=== PATIENT | female | born 1990 | race Asian ===

== ENCOUNTER 2020-11-12 05:03 | Emergency (ER) | payer MEDICAID ==
[2020-11-12] MEDS ORDERED: HYDROmorphone 0.5 MG/0.5 ML Syringe IVPUSH ONE (05:26)
[2020-11-12] MEDS ORDERED: Ondansetron 4 MG/2 ML SDV IVPUSH ONE (05:26)
[2020-11-12] MEDS ORDERED: Sodium Chloride 0.9% 1,000 ML IV SCH (05:30)
--- NOTE | 2020-11-12 05:33 | EDM.PDOC ---
<Cristopher Sánchez - Last Filed: 11/12/20 06:54> ED HPI GENERAL MEDICAL PROBLEM - General Chief Complaint: Abdominal Pain Stated Complaint: abdominal pain Time Seen by Provider: 11/12/20 05:13 Source of Information: Reports: Patient History Limitations: Reports: Other (The patient appears to be in pain and is intolerant of my evaluation) - History of Present Illness INITIAL COMMENTS - FREE TEXT/NARRATIVE: Ms. Emilio Thornton is a 30-year-old woman who now presents to the ED by EMS after waking up around 03:30 this morning with sudden onset severe sharp/stabbing right pelvic pain. The pain has been waxing and waning, however, the patient has not identified any modifiers. No associated fever, chills, nausea, vomiting, constipation, diarrhea, dysuria, or gross hematuria. The patient did not take any [id number] or home remedies prior to calling the paramedics, however, EMS gave the patient 50 mcg of IV fentanyl en route to the ED. The patient states that she has had similar symptoms several times in the past, all due to ovarian cysts, although she states that she suffered an ovarian torsion at one point, as well. She states that she has undergone 3 ovarian cystectomies with 1 ovarian detorsion in the past. As far as she knows, she still has both ovaries. The patient's LMP was approximately in April 2020. She has an IUD. -0-1-1. Here in the ED, the patient is found to be hemodynamically stable, afebrile, saturating 100% on room air. Prior to early this morning, the patient denies having a recent fever, chills, sore throat, ear pain, nasal or sinus congestion, cough, dyspnea, chest pain, palpitations, nausea, vomiting, constipation, diarrhea, abdominal pain, urinary symptoms, recent weight gain or weight loss, recent bloody bowel movements or black bowel movements, recent joint aches, headaches, or rashes. The patient's PCP is Dr. Bryanna Mercedes, at [facility]. Her Fare Collector is Dr. Brissa Suh, at [facility]. She states that she has already received an influenza vaccine this season. Right Lower Abdominal Pain Score (Numeric/FACES): 2 - Related Data Allergies Allergy/AdvReac Type Severity Reaction Status Date / Time acetaminophen Allergy Rash Verified 11/12/20 05:05 [From Excedrin Tension Headache] caffeine Allergy Rash Verified 11/12/20 05:05 [From Excedrin Tension Headache] Home Meds: Home Meds Amitriptyline [Elavil] 25 mg PO BEDTIME 11/12/20 [History] Diclofenac Sodium [Voltaren] 75 mg PO BIDMEALS #10 tab.cr 11/12/20 [Rx] Levothyroxine [Synthroid] 100 mcg PO ACBREAKFAST 11/12/20 [History] oxyCODONE HCl/Acetaminophen [Percocet 5-325 mg Tablet] 1 - 2 each PO Q4H PRN #15 tablet 11/12/20 [Rx] 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 Ovarian torsion x 1.) Neurological History: Reports: Migraines Endocrine/Metabolic History: Reports: Hypothyroidism - Past Surgical History HEENT Surgical History: Reports: Oral Surgery (dental extractions) GI Surgical History: Reports: Appendectomy Female Surgical History: Reports: Other (See Below) (Laparoscopic ovarian cystectomy x 3, including ovarian detorsion x 1) Endocrine Surgical History: Reports: Thyroidectomy Social & Family History - Tobacco Use Tobacco Use Status *Q: Never Tobacco User - Alcohol Use Alcohol Use History: Yes Alcohol Use Frequency: Socially - Recreational Drug Use Recreational Drug Use: No - Living Situation & Occupation Living situation: Reports: Single, with Significant Other (Fianc + his grandfather), with Family (Daughter) 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 ED EXAM, RENAL/ - Physical Exam Exam: See Below Exam Limited By: No Limitations General Appearance: Alert, WD/WN, Mild Distress (appears uncomfortable) Eye Exam: Bilateral Eye: EOMI, Normal Inspection Ears: Normal External Exam, Hearing Grossly Normal Nose: Normal Inspection Throat/Mouth: Normal Inspection, Normal Lips, Normal Voice, No Airway Compromise Head: Atraumatic, Normocephalic Neck: Normal Inspection, Full Range of Motion Respiratory/Chest: No Respiratory Distress, Lungs Clear, Normal Breath Sounds, No Accessory Muscle Use Cardiovascular: Normal Peripheral Pulses, Regular Rate, Rhythm, No Edema, No Gallop, No JVD, No Murmur, No Rub GI/Abdominal: Normal Bowel Sounds, Soft, No Organomegaly, No Distention, No Abnormal Bruit, No Mass, Tender (Across the entire abdomen, with the greatest tenderness in the right lower quadrant/pelvis) Back Exam: Normal Inspection, Full Range of Motion. No: CVA Tenderness (L), CVA Tenderness (R) Extremities: Normal Inspection, Normal Range of Motion, No Pedal Edema, Normal Capillary Refill Neurological: Alert, Oriented, Normal Cognition, No Motor/Sensory Deficits Psychiatric: Normal Affect Skin Exam: Warm, Dry, Intact, Normal Color, No Rash Course - Re-Assessments/Exams Free Text/Narrative Re-Assessment/Exam: 11/12/20 05:26 As above, the patient who has a history of at least 3 ovarian cysts and one ovarian torsion, status post 3 ovarian cystectomies with 1 ovarian detorsion, now presents with sudden-onset right pelvic pain similar to prior ovarian cysts. She has normal bowel sounds, but complains of tenderness to her entire abdomen when palpated, particularly the right lower quadrant. Since she underwent an incidental appendectomy, appendicitis is obviously quite unlikely. I have ordered several blood tests, a urinalysis, and a pelvic ultrasound to evaluate. In the meantime, the patient will be given some IV Dilaudid, IV Zofran, and IV fluid. 11/12/20 07:00 The patient's CBC is unremarkable. Her CMP is remarkable for an anion gap slightly elevated at 15.7, but with a bicarbonate normal at 25, and mild hyperglycemia of 111, with the remainder of her CMP being unremarkable. Her urinalysis is unremarkable. Her quantitative hCG, and the results of her transvaginal ultrasound are still pending. Notified that the patient is requesting additional antinausea medicine, and something to eat or drink. I have ordered 10 mg of IV Reglan, however, I would like to keep her npo until the cause of her presenting symptoms has been determined. Case discussed with Dr. Shay, and care of the patient turned over to him at this time, for change of shift. Departure - Departure Disposition: Home, Self-Care 01 Clinical Impression: Ruptured cyst of left ovary - Discharge Information *PRESCRIPTION DRUG MONITORING PROGRAM REVIEWED*: Not Applicable *COPY OF PRESCRIPTION DRUG MONITORING REPORT IN PATIENT TIERA: Not Applicable Prescriptions: oxyCODONE HCl/Acetaminophen [Percocet 5-325 mg Tablet] 1 - 2 each PO Q4H PRN #15 tablet PRN Reason: pain relief. Diclofenac Sodium [Voltaren] 75 mg PO BIDMEALS #10 tab.cr Instructions: Ovarian Cyst, [id number] Referrals: Bryanna Mercedes MD [Ordering Only Provider] - Brissa Suh MD [Ordering Only Provider] - Forms: ED Department Discharge, ED Return to Work/School Form Additional Instructions: Evaluation in the emergency room this morning in regards to acute onset of left lower quadrant abdominal pain/pelvic pain that awoke him from sleep around 0330 hrs. this morning. Transvaginal ultrasound confirms a ruptured left ovarian cyst with slightly increased fluid within the pelvis due to drainage from the cyst. No active hemorrhage or bleeding from the cyst identified. Treatment is time to heal. Your body will clean up the mess or to speak over the next 4 to 5 days. Activity as tolerated. May use Voltaren 75 mg twice daily 1 in the morning and then 1 after supper for the next 5 days to reduce pain and inflammation. Percocet tabs 5 325 mg strength 1 or 2 every 4-6 hours as needed for pain relief. Sepsis Event Note (ED) - Evaluation Sepsis Screening Result: No Definite Risk <Regis Shay - Last Filed: 11/12/20 07:45> Course - Vital Signs Last Recorded V/S: Last Vital Signs Temp 36.4 C 11/12/20 05:06 Pulse 95 11/12/20 05:06 Resp 16 11/12/20 05:06 BP 110/73 11/12/20 05:06 Pulse Ox 100 11/12/20 05:06 - Orders/Labs/Meds Orders: Active Orders 24 hr Category Date Time Status Sodium Chloride 0.9% [Normal Saline] 1,000 ml Med 11/12/20 05:30 Active IV ASDIRECTED Medication Orders Sodium Chloride (Normal Saline) 1,000 mls @ 100 mls/hr IV ASDIRECTED KANDY Last Admin: 11/12/20 05:35 Dose: 100 mls/hr Documented by: ORACIO Labs: Laboratory Tests 11/12/20 11/12/20 11/12/20 Range/Units 05:37 05:37 05:37 WBC 6.85 (3.98-10.04) K/mm3 RBC 4.66 (3.98-5.22) M/mm3 Hgb 13.0 (11.2-15.7) gm/dl Hct 39.2 (34.1-44.9) % MCV 84.1 (79.4-94.8) fl MCH 27.9 (25.6-32.2) pg MCHC 33.2 (32.2-35.5) g/dl RDW Std Deviation 42.7 (36.4-46.3) fL Plt Count 278 (182-369) K/mm3 MPV 9.6 (9.4-12.3) fl Neutrophils % (Manual) 74 H (40-60) % Band Neutrophils % 0 (0-10) % Lymphocytes % (Manual) 25 (20-40) % Atypical Lymphs % 0 % Monocytes % (Manual) 1 L (2-10) % Eosinophils % (Manual) 0 L (0.7-5.8) % Basophils % (Manual) 0 L (0.1-1.2) Platelet Estimate Adequate RBC Morph Comment Normal Sodium 142 (136-145) mEq/L Potassium 3.7 (3.5-5.1) mEq/L Chloride 105 (98-107) mEq/L Carbon Dioxide 25 (21-32) mEq/L Anion Gap 15.7 H (5-15) BUN 8 (7-18) mg/dL Creatinine 0.9 (0.55-1.02) mg/dL Est Cr Clr Drug Dosing 84.79 mL/min Estimated GFR (MDRD) > 60 (>60) mL/min BUN/Creatinine Ratio 8.9 L (14-18) Glucose 111 H (74-106) mg/dL Calcium 8.2 L (8.5-10.1) mg/dL Total Bilirubin 0.4 (0.2-1.0) mg/dL AST 21 (15-37) U/L ALT 30 (14-59) U/L Alkaline Phosphatase 96 (46-116) U/L C-Reactive Protein (<1.0) mg/dL Total Protein 7.3 (6.4-8.2) g/dl Albumin 3.5 (3.4-5.0) g/dl Globulin 3.8 gm/dL Albumin/Globulin Ratio 0.9 L (1-2) HCG, Quant 2.0 mIU/mL Urine Color (Yellow) Urine Appearance (Clear) Urine pH (5.0-8.0) Ur Specific [place] (1.005-1.030) Urine Protein (Negative) Urine Glucose (UA) (Negative) Urine Ketones (Negative) Urine Occult Blood (Negative) Urine Nitrite (Negative) Urine Bilirubin (Negative) Urine Urobilinogen (0.2-1.0) Ur Leukocyte Esterase (Negative) Urine RBC (0-5) /hpf Urine WBC (0-5) /hpf Ur Squamous Epith Cells (0-5) /hpf Urine Bacteria (FEW) /hpf Urine Mucus (FEW) /hpf 11/12/20 11/12/20 Range/Units 05:37 05:47 WBC (3.98-10.04) K/mm3 RBC (3.98-5.22) M/mm3 Hgb (11.2-15.7) gm/dl Hct (34.1-44.9) % MCV (79.4-94.8) fl MCH (25.6-32.2) pg MCHC (32.2-35.5) g/dl RDW Std Deviation (36.4-46.3) fL Plt Count (182-369) K/mm3 MPV (9.4-12.3) fl Neutrophils % (Manual) (40-60) % Band Neutrophils % (0-10) % Lymphocytes % (Manual) (20-40) % Atypical Lymphs % % Monocytes % (Manual) (2-10) % Eosinophils % (Manual) (0.7-5.8) % Basophils % (Manual) (0.1-1.2) Platelet Estimate RBC Morph Comment Sodium (136-145) mEq/L Potassium (3.5-5.1) mEq/L Chloride (98-107) mEq/L Carbon Dioxide (21-32) mEq/L Anion Gap (5-15) BUN (7-18) mg/dL Creatinine (0.55-1.02) mg/dL Est Cr Clr Drug Dosing mL/min Estimated GFR (MDRD) (>60) mL/min BUN/Creatinine Ratio (14-18) Glucose (74-106) mg/dL Calcium (8.5-10.1) mg/dL Total Bilirubin (0.2-1.0) mg/dL AST (15-37) U/L ALT (14-59) U/L Alkaline Phosphatase (46-116) U/L C-Reactive Protein 0.3 (<1.0) mg/dL Total Protein (6.4-8.2) g/dl Albumin (3.4-5.0) g/dl Globulin gm/dL Albumin/Globulin Ratio (1-2) HCG, Quant mIU/mL Urine Color Yellow (Yellow) Urine Appearance Clear (Clear) Urine pH 6.5 (5.0-8.0) Ur Specific [place] 1.025 (1.005-1.030) Urine Protein Negative (Negative) Urine Glucose (UA) Negative (Negative) Urine Ketones Negative (Negative) Urine Occult Blood Negative (Negative) Urine Nitrite Negative (Negative) Urine Bilirubin Negative (Negative) Urine Urobilinogen 0.2 (0.2-1.0) Ur Leukocyte Esterase Negative (Negative) Urine RBC Not seen (0-5) /hpf Urine WBC 0-5 (0-5) /hpf Ur Squamous Epith Cells 5-10 H (0-5) /hpf Urine Bacteria Rare (FEW) /hpf Urine Mucus Few (FEW) /hpf Meds: Medications Generic Name Dose Route Start Last Admin Trade Name Freq PRN Reason Stop Dose Admin Sodium Chloride 1,000 mls @ 100 mls/hr 11/12/20 05:30 11/12/20 05:35 Normal Saline IV 100 mls/hr ASDIRECTED KANDY Administration Discontinued Medications Generic Name Dose Route Start Last Admin Trade Name Freq PRN Reason Stop Dose Admin Hydromorphone HCl 0.5 mg 11/12/20 05:26 11/12/20 05:36 Dilaudid IVPUSH 11/12/20 05:27 0.5 mg ONETIME ONE Administration Metoclopramide HCl 10 mg 11/12/20 06:54 11/12/20 06:58 Reglan IVPUSH 11/12/20 06:55 10 mg ONETIME STA Administration Ondansetron HCl 4 mg 11/12/20 05:26 11/12/20 05:35 Zofran IVPUSH 11/12/20 05:27 4 mg ONETIME ONE Administration - Re-Assessments/Exams Free Text/Narrative Re-Assessment/Exam: 11/12/20 07:[address] Sánchez at change of shift.Transvaginal ultrasound is back. IUD is present within the endometrial cavity. Uterus is anteverted no myometrial abnormality is identified. There is free fluid within the pelvis being seen which is slightly more than physiologic. Cystic areas noted on the left side measuring 3.0 cm compatible with a simple cyst. Right ovary appears normal. Impression is free fluid within the pelvis which is slightly more than 1 would expect usually. 3.0 cm cyst is noted within the left side which appears simple but may be leaking . 11/12/20 07:24 reexamination the patient is guarding very minimally over the left lower pelvis and left lower quadrant of the abdomen. No clinical evidence of significant peritoneal irritation. She will therefore be discharged home on Voltaren 75 mg twice daily for 5 days and Percocet tabs 5/325 mg strength 1 or 2 every 4-6 hours as needed for pain relief. Note will be given to excuse her from the workplace for the next 3 days. Departure - Departure Time of Disposition: 07:26 Condition: Fair Sepsis Event Note (ED) - Focused Exam Vital Signs: Vital Signs Temp Pulse Resp BP Pulse Ox 11/12/20 05:06 36.4 C 95 16 110/73 100
[2020-11-12] MEDS ORDERED: Metoclopramide 10 MG/2 ML SDV IVPUSH STA (06:54)
--- NOTE | 2020-11-12 07:05 | US ---
Pelvic ultrasound: Multiple real-time images were obtained transvaginally. IUD is present within the endometrial cavity. Uterus is anteverted. No myometrial abnormality is identified. There is free fluid within the pelvis being seen which is slightly more than being physiologic. Cystic area is noted on the left side measuring 3.0 cm compatible with a simple cyst. Right ovary appears normal. Measurements: Uterus: Length 6.9 cm, AP height 4.2 cm, transverse width 5.3 cm Right ovary: 2.6 x 1.5 x 1.6 cm Impression: 1. Free fluid within the pelvis which is slightly more than usually seen. 3.0 cm cyst is noted within the left side which appears simple but may be leaking. Please correlate if this correlates with patient's symptoms. 2. IUD present within the endometrial cavity of the uterus. 3. Right ovary appears normal. Diagnostic code #3
== END 2020-11-12 07:40 | disposition home or self-care (01) ==
LOC: JD.ED 05:03
DX: N83.202 Unspecified ovarian cyst, left side (principal); E03.9 Hypothyroidism, unspecified; Z88.6 Allergy status to analgesic agent; Z88.8 Allergy status to other drugs, medicaments and biological substances; Z79.899 Other long term (current) drug therapy
CPT/HCPCS: 36415; 76830; 80053; 81001; 84702; 85007; 85027; 86140; 96374; 96375; 99285; J1170; J2405; J2765; J7030; 99284